=== PATIENT | male | born 1945 | race Caucasian/White ===

== ENCOUNTER → 2019-12-24 10:46 | Outpatient (CLI) | payer MEDICARE, SELFPAY ==
--- NOTE | 2019-12-24 10:55 | XR_ITS ---
PROCEDURE: XR SHOULDER RT MIN 2V CLINICAL INDICATION: BURSITIS OF R SHOULDER COMPARISON: No exams were available for comparison FINDINGS: There are mild osteoarthritic changes of the glenohumeral joint and acromioclavicular joint. There is mild superior elevation of the humeral head with subacromial stenosis and some minimal cortical regularity of the humeral head at the greater tubercle region. These findings may all be seen with rotator cuff disease. IMPRESSION: Mild subacromial stenosis with slight elevation of the humeral head and some cortical regularity of the humeral head which may be seen with rotator cuff anomalies. Mild osteoarthritis Dictated by: Domingo Arias MD 12/24/2019 18:10 Domingo Arias MD in [place] 12/24/2019 18:10
== END ==
PROVIDERS: PCP Family Medicine; Visit Provider Family Medicine
DX: M75.51 Bursitis of right shoulder (principal)
CPT/HCPCS: 73030

== ENCOUNTER → 2020-09-02 12:15 | Outpatient (CLI) | payer MEDICARE, SELFPAY ==
--- NOTE | 2020-09-02 12:19 | XR_ITS ---
PROCEDURE: XR SHOULDER LT MIN 2V CLINICAL INDICATION: TENDONITIS COMPARISON: DX XR SHOULDER RT MIN 2V from 12/24/2019 FINDINGS: No fracture or dislocation. No lytic or blastic change. There is normal mineralization. There are mild osteoarthritic changes of the acromioclavicular and glenohumeral joint with high-riding humeral head and severe subacromial stenosis. Other findings:None. IMPRESSION: Osteoarthritic change of the AC joint and glenohumeral joint with high-riding humeral head and subacromial stenosis. These findings would suggest tear of the rotator cuff. Dictated by: Domingo Arias MD 09/02/2020 12:51 Domingo Arias MD in [facility] 09/02/2020 12:51
--- NOTE | 2020-09-02 12:19 | XR_ITS ---
PROCEDURE: XR CHEST 2V CLINICAL HISTORY: H/O TOBACCO USE COMPARISON: No exams were available for comparison FINDINGS: The cardiomediastinal silhouette and pulmonary vascularity are within normal limits. The lungs are clear without infiltrates, suspicious nodules, or pleural effusions. No acute bony abnormalities. IMPRESSION: No acute findings. Dictated by: Domingo Arias MD 09/02/2020 12:52 Domingo Arias MD in [facility] 09/02/2020 12:52
== END ==
PROVIDERS: PCP Family Medicine; Visit Provider Family Medicine
DX: M75.22 Bicipital tendinitis, left shoulder (principal); Z87.891 Personal history of nicotine dependence
CPT/HCPCS: 71046; 73030

== ENCOUNTER 2022-04-09 15:58 | Emergency (ER) | payer MEDICARE, SELFPAY ==
[2022-04-09] VITALS (8 sets, daily range): BP systolic 159–168; BP diastolic 84–99; PULSE 66–88; RESP 16–18; TEMP 35.6–36.6; O2SAT 91–100; BMI 28.1
--- NOTE | 2022-04-09 16:32 | HMH.EDGENADL ---
Discharge Plan Disposition Patient Disposition: Home, Self-Care Condition: Good Chief Complaint: Weakness Referrals Follow up/Referrals: Dave Terry MD [Primary Care Provider] - See instructions Clinical Impressions Clinical Impression: Acute dehydration, Fatigue Instructions Patient Instructions: DI for Dehydration -- Adult, DI for Fatigue Discharge ED Provider: Adalberto Arellano General Adult HPI General Chief complaint: Weakness Stated complaint: Weakness Time Seen by Provider: 04/09/22 16:28 History of Present Illness HPI narrative: History somewhat limited due to hearing deficit, has 76-year-old gentleman with no documented past medical history however family bedside states he refuses to ever go to the doctor. He was found at home sitting in his kitchen table, was reportedly lethargic, stated he had not eaten or drank anything all day, also reported that he may have fallen this morning and struck his head. He is not on any anticoagulants, is denying any neck or back pain, was ambulatory just globally weak. He does report some nausea, no vomiting diarrhea or abdominal pain. He denies any fevers, chills or other symptoms at this time has not had any treatments prior to arrival here Related Data Allergies Allergy/AdvReac Type Severity Reaction Status Date / Time No Known Allergies Allergy Verified 04/09/22 16:50 [facility] Disclaimer: The information contained in this section may have been updated after the patient was seen, as this information can be updated by other users. Social History Smoking Status: Current every day smoker alcohol intake: former current occupational status: other Travel in the last 8 weeks: None ROS Obtained: Yes Systems reviewed as appropriate & no additional complaints except as documented Constitutional Constitutional: Reports system reviewed and no additional complaints, except as documented Eyes Eyes: Reports system reviewed and no additional complaints, except as documented ENT Ears, Nose, Mouth, and Throat: Reports system reviewed and no additional complaints, except as documented Cardiovascular Cardiovascular: Reports system reviewed and no additional complaints, except as documented Respiratory Respiratory: Reports system reviewed and no additional complaints, except as documented Gastrointestinal Gastrointestingal: Reports system reviewed and no additional complaints, except as documented Genitourinary Male Genitourinary: Reports system reviewed and no additional complaints, except as documented Musculoskeletal Musculoskeletal: Reports system reviewed and no additional complaints, except as documented Integumentary/Breasts Skin/Breast: Reports system reviewed and no additional complaints, except as documented Neurologic Neurologic: Reports system reviewed and no additional complaints, except as documented Endocrine Endocrine: Reports system reviewed and no additional complaints, except as documented Hematologic/Lymphatic Henatologic/Lymphatic: Reports system reviewed and no additional complaints, except as documented Allergic/Immunologic Allergic/Immunologic: Reports system reviewed and no additional complaints, except as documented Physical Exam General General appearance: alert and other (Listless) Head Head exam: atraumatic, normocephalic and normal inspection Eye Eye exam: Present normal appearance, PERRL and EOMI ENT ENT exam: Present normal exam, normal oropharynx, mucous membranes dry, TM's normal bilaterally and normal external ear exam Neck Neck exam: Present normal inspection, full ROM and trachea midline; Absent meningismus or lymphadenopathy Chest Chest inspection: Present normal inspection and symmetric chest wall rise; Absent tenderness Respiratory Respiratory exam: Present normal lung sounds bilaterally; Absent respiratory distress Cardiovascular Cardiovascular exam: Present regular rate and
--- NOTE | 2022-04-09 16:34 | XR_ITS ---
PROCEDURE INFORMATION: Exam: XR Chest Exam date and time: 04/09/2022 4:52 PM Age: 76 years old Clinical indication: Shortness of breath; Additional info: Sob/cp TECHNIQUE: Imaging protocol: Radiologic exam of the chest. Views: 1 view. COMPARISON: CR XR CHEST 2V 09/02/2020 12:26 PM FINDINGS: Lungs: Unremarkable. No consolidation. Pleural spaces: Unremarkable. No pleural effusion. No pneumothorax. Heart/Mediastinum: Unremarkable. No cardiomegaly. Bones/joints: Unremarkable for age. IMPRESSION: Negative chest
--- NOTE | 2022-04-09 16:34 | ECG_ITS ---
APPROVED REPORT Exam: Resting ECG HR:63 bpm ECG Measurements Heart Rate 63 AXES NC 185 P 71 QRSd 137 QRS -62 QT 420 T 36 QTc 427 Conclusion SINUS RHYTHM LEFT AXIS DEVIATION [QRS AXIS < -30] RIGHT BUNDLE BRANCH BLOCK [120+ ms QRS DURATION, UPRIGHT V1, 40+ ms S IN I/aVL/V4/V5/V6] ABNORMAL ECG UNCONFIRMED REPORT Electronically signed by : Sandro Ewing MD 04/10/2022 22:22:33
--- NOTE | 2022-04-09 16:43 | CT_ITS ---
PROCEDURE INFORMATION: Exam: CT Head Without Contrast Exam date and time: 04/09/2022 4:55 PM Age: 76 years old Clinical indication: Altered mental status/memory loss and walking, difficulty and weakness, extremity; Bilateral; Confusion or disorientation; Additional info: Confusion and weakness TECHNIQUE: Imaging protocol: Computed tomography of the head without contrast. Radiation optimization: All CT scans at this facility use at least one of these dose optimization techniques: automated exposure control; mA and/or kV adjustment per patient size (includes targeted exams where dose is matched to clinical indication); or iterative reconstruction. COMPARISON: No relevant prior studies available. 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 Adjacent more ill-defined area of decreased attenuation just anterior to the left to form nucleus likely representing a lacunar infarct of indeterminate age. Smaller old lacunar infarcts right basal ganglia. Vague areas of decreased attenuation within the periventricular white matter treated to chronic microvascular changes. No evidence of acute cortical infarct at this time. No evidence of intracranial hemorrhage. Cortical sulci are unremarkable for age. Cerebral ventricles: Unremarkable for age. Paranasal sinuses: Visualized sinuses are unremarkable. No fluid levels. Mastoid air cells: Visualized mastoid air cells are well aerated. Bones/joints: Unremarkable. No acute fracture. Soft tissues: Unremarkable. IMPRESSION: Multiple old lacunar infarcts both basal ganglia larger on the left 1 of which is of indeterminate age and could be better assessed on MRI exam.
[2022-04-09 16:47] LABS: Coronavirus 19, PCR Not Detected (NotDetected); Influenza A, PCR Not Detected (NotDetected); Influenza B, PCR Not Detected (NotDetected)
[2022-04-09 16:52] LABS: Chloride 102 mmol/L (98-107); Sodium 140 mmol/L (136-145)
--- NOTE | 2022-04-09 16:52 | PC.NURSE ---
pt to CT via wheelchair
[2022-04-09 16:53] LABS: Potassium 4.3 mmoL/L (3.5-5.1)
[2022-04-09 16:55] LABS: Alanine Aminotransferase 33 U/L (12-78); Albumin Level 4.6 g/dl (3.5-5.0); Albumin/Globulin Ratio 1.5 (1.1-1.8); Alkaline Phosphatase 93 U/L (38-126); Anion Gap 15.3 mEq/L (5-15); Aspartate Amino Transferase 45 U/L (17-59); Bilirubin,Total 0.7 mg/dl (0.2-1.3); Blood Urea Nitrogen 15 mg/dl (9-20); Calcium 10.5 mg/dl (8.4-10.2); Carbon Dioxide 27 mmol/L (22.0-30.0); Creatinine Clearance Estimated 70 mL/min (50-200); Estimated Glomerular Filt Rate 93 ml/min (>60); GFR (African American) 113 ML/MIN (>60); Glucose 168 mg/dl (74-100); Total Protein,Serum 7.6 g/dl (6.3-8.2)
[2022-04-09 16:56] LABS: Magnesium 1.9 mg/dl (1.6-2.3)
[2022-04-09 17:03] LABS: Basophils # 0.1 K/mm3 (0-0.2); Basophils % 0.7 % (0.1-2.0); Eosinophils % 0.2 % (0.1-12.0); Hematocrit 50.4 % (42.0-52.0); Hemoglobin 16.6 g/dL (14.1-18.0); Lymphocytes # 0.6 K/mm3 (0.7-4.5); Lymphocytes % 7.9 % (10-50); Mean Corpuscular HGB Conc 32.9 g/dL (31.8-35.4); Mean Corpuscular Hemoglobin 31.3 pg (27.0-31.2); Mean Corpuscular Volume 95.2 fl (80-94); Mean Platelet Volume 8.1 fl (7.4-10.4); Monocytes # 0.4 K/mm3 (0.1-1.0); Monocytes % 5.1 % (1.7-9.3); Neutrophils # 6.7 K/mm3 (1.8-7.8); Platelet Count 224 K/mm3 (142-424); Red Cell Distribution Width 13.4 % (11.5-17.5); White Blood Count 7.8 K/mm3 (4.8-10.8)
[2022-04-09 17:15] LABS: MANUAL DIFFERENTIAL MANUAL DIFFERENTIAL (MANUAL DIFF)
[2022-04-09 17:20] LABS: Troponin I < 0.01 ng/ml (0.00-0.034)
[2022-04-09 18:02] LABS: Lymphocytes % 4 % (10-50); Neutrophils % 90 % (42-76); Platelet Estimate Normal; RBC Morphology Normal; Total Cells Counted 100
== END 2022-04-09 19:43 | disposition home or self-care (01) ==
PROVIDERS: Emergency Provider Emergency Medicine; PCP Family Medicine
DX: R53.1 Weakness (principal); R53.81 Other malaise; R11.0 Nausea; Z20.822 Contact with and (suspected) exposure to COVID-19; I45.10 Unspecified right bundle-branch block; F17.210 Nicotine dependence, cigarettes, uncomplicated
CPT/HCPCS: 70450; 71045; 80053; 83735; 84484; 85007; 85025; 93005; 96360; 99285; C9803; U0003; U0005

== ENCOUNTER 2023-03-10 12:22 | Observation (INO) | payer MEDICARE, SELFPAY ==
[2023-03-10] VITALS (10 sets, daily range): BP systolic 98–129; BP diastolic 60–78; PULSE 68–89; RESP 16–18; TEMP 36.4–36.7; O2SAT 90–98; BMI 19.6; BMI 20.5
--- NOTE | 2023-03-10 12:33 | PC.NURSE ---
Dr. Hopkins at [facility] for pt eval
--- NOTE | 2023-03-10 12:39 | XR_ITS ---
FINAL REPORT CLINICAL HISTORY: fall, right hip pain, inability to walk COMPARISON: None FINDINGS: RIGHT HIP Two views of the right hip demonstrate no acute fracture or dislocation. The hip joint space is preserved. The visualized bony structures are well aligned. No soft tissue abnormality is seen. IMPRESSION: No acute bony abnormality. Reviewed, Interpreted and Dictated by Pedro Pablo Chavez MD Transcribed by Gail Yi Authenticated and . [facility]
--- NOTE | 2023-03-10 12:39 | CT_ITS ---
FINAL REPORT TECHNIQUE: Axial images were obtained of the lumbar spine by computed tomography. Coronal and sagittal reconstruction process performed. This study was performed with techniques to keep radiation doses as low as reasonably achievable (ALARA). Individualized dose reduction techniques using automated exposure control or adjustment of mA and/or kV according to the patient''s size were employed. CLINICAL HISTORY: falll, ttp COMPARISON: None FINDINGS: There is 15 degrees of lumbar scoliosis convex to the right. There is extensive disc space narrowing L1-2 through L4-5 with vacuum disc phenomenon. Vertebrae are normal in height. There is no malalignment. There is prominent facet sclerosis in the lower lumbar spine. T12-L1: No significant spinal canal or neural foraminal compromise. L1-2: Grxb-bh-mutyrhfx diffuse disc bulge. Iwll-kd-cpmhjewd bilateral neural foraminal narrowing. L2-3: Moderate diffuse disc bulge. Endplate hypertrophy. Moderate left neural foraminal narrowing. L3-4: Moderate diffuse disc bulge. Endplate hypertrophy. Moderate right and high-grade left neural foraminal narrowing. L4-5: Moderate diffuse disc bulge. Endplate hypertrophy. High-grade right and moderate left neural foraminal narrowing. L5-S1: Mild diffuse disc bulge. Nioe-ns-ykllrqbf bilateral neural foraminal narrowing. There is ectasia of the distal abdominal aorta measuring up to 2.7 cm. IMPRESSION: Diffuse changes of degenerative disc disease with neural foraminal compromise particularly evident on the left at L3-4 and on the right at L4-5. Reviewed, Interpreted and Dictated by Pedro Pablo Chavez MD Transcribed by Gail Yi Authenticated and [facility]
--- NOTE | 2023-03-10 12:39 | CT_ITS ---
FINAL REPORT TECHNIQUE: Axial CT images were performed through the head. Coronal reformatted images were submitted. This study was performed with techniques to keep radiation doses as low as reasonably achievable (ALARA). Individualized dose reduction techniques using automated exposure control or adjustment of mA and/or kV according to the patient's size were employed. CLINICAL HISTORY: fall, no thinners COMPARISON: None FINDINGS: There is moderate atrophy. Head is asymmetrically positioned in the gantry. There are multiple old lacunar infarcts in the anterior basal ganglia and left periventricular white matter. The ventricles are normal in size. There is no evidence of hemorrhage. There is no mass or edema identified. There is no abnormal extra-axial fluid seen. The sinuses are well aerated. IMPRESSION: Old lacunar infarcts. Atrophy. If suspicion for acute abnormality, diffusion-weighted brain MRI is recommended. Reviewed, Interpreted and Dictated by Pedro Pablo Chavez MD Transcribed by Gail Yi Authenticated and [facility]
--- NOTE | 2023-03-10 12:39 | XR_ITS ---
FINAL REPORT CLINICAL HISTORY: fall, pain in right hip COMPARISON: None FINDINGS: Two views of the right femur were obtained. There is no acute fracture or dislocation. The joint spaces are well preserved. There is no acute soft tissue abnormality. IMPRESSION: No acute abnormality identified. Reviewed, Interpreted and Dictated by Pedro Pablo Chavez MD Transcribed by Gail Yi Authenticated and [facility]
--- NOTE | 2023-03-10 12:40 | HMH.EDGENADL ---
Discharge Plan Disposition Patient Disposition: Admitted Condition: Fair Clinical Impressions Clinical Impression: MELVIN (acute kidney injury), Debility Fall Qualifiers: Encounter type: initial encounter Qualified Code(s): W19.XXXA - Unspecified fall, initial encounter Discharge ED Provider: Niurka Hopkins General Adult HPI General Chief complaint: Fall Stated complaint: RT leg and hip pain Time Seen by Provider: 03/10/23 12:32 History of Present Illness HPI narrative: This 77-year-old male with a history of hypertension presents to the emergency department after a fall 2 days ago. His family made him come to the ER because he has been unable to walk since that time. Patient states he has pain in the right hip. They describe he has had difficulty getting up out of a chair since the fall. Patient also complains of lower back pain since the fall. He apparently stated 2 days ago he thought he might of hit his head, patient is unsure. He does not have a history of dementia, normally drives into town daily. He ambulates without assistance at baseline. Family at bedside states he is mentating at baseline at this time. Patient does not have any other complaints at this time. Related Data Home Medications Medication Instructions Recorded Confirmed No Known Home Medications 03/10/23 03/10/23 Allergies Allergy/AdvReac Type Severity Reaction Status Date / Time No Known Allergies Allergy Verified 04/09/22 16:50 [facility] Disclaimer: The information contained in this section may have been updated after the patient was seen, as this information can be updated by other users. Social History (Updated 04/09/22 @ 18:42 by Adalberto Arellano MD) Smoking Status: Current every day smoker alcohol intake: former current occupational status: other Travel in the last 8 weeks: None ROS Obtained: Yes All systems reviewed & no additional complaints except as documented Constitutional Constitutional: Denies chills, Denies fever(s), Denies headache(s) and Denies weakness Eyes Eyes: Denies change in vision ENT Ears, Nose, Mouth, and Throat: Denies dizziness, Denies headache(s), Denies nasal congestion and Denies sore throat Cardiovascular Cardiovascular: Denies chest pain, Denies dyspnea and Denies leg edema Respiratory Respiratory: Denies cough and Denies dyspnea Gastrointestinal Gastrointestingal: Denies constipation, diarrhea, nausea or vomiting Genitourinary Male Genitourinary: Denies difficulty urinating Musculoskeletal Musculoskeletal: Reports abnormal gait (Unable to ambulate), Reports arthralgias (Right hip pain), Denies myalgias, Denies numbness and Denies tingling Integumentary/Breasts Skin/Breast: Denies change in pigmentation Neurologic Neurologic: Reports abnormal gait (Unable to ambulate), Denies dizziness, Denies headache(s), Denies numbness, Denies tingling and Denies weakness Physical Exam General General appearance: alert and in no apparent distress Head Head exam: atraumatic and normocephalic Eye Eye exam: Present PERRL and EOMI ENT ENT exam: Present mucous membranes moist Neck Neck exam: Present normal inspection and full ROM; Absent tenderness Chest Chest inspection: Present symmetric chest wall rise Respiratory Respiratory exam: Present normal lung sounds bilaterally; Absent respiratory distress, wheezes or stridor Cardiovascular Cardiovascular exam: Present regular rate and normal rhythm Abdominal Exam Abdominal exam: Present soft; Absent distention, tenderness, guarding or rebound Extremities Exam Extremities exam: Present full ROM (Range of motion of hips, knees, ankles full with passive movement. Minor pain on flexion of the right hip. No deformity or crepitus. Neurovascularly intact distally) and tenderness Back Exam Back exam: Present tenderness (Lumbar spinal tenderness without deformity or step-off) Neurological Exam Neurological exam: Present alert and oriented X3; Absent motor sens
[2023-03-10 13:16] LABS: Basophils % 0.3 % (0.1-2.0); Eosinophils # 0.1 K/mm3 (0.0-0.4); Eosinophils % 0.5 % (0.1-12.0); Hemoglobin 16.6 g/dL (14.1-18.0); Lymphocytes # 1.5 K/mm3 (0.7-4.5); Lymphocytes % 9.6 % (10-50); Mean Corpuscular HGB Conc 33.2 g/dL (31.8-35.4); Mean Corpuscular Hemoglobin 32.3 pg (27.0-31.2); Mean Corpuscular Volume 97.4 fl (80-94); Mean Platelet Volume 8.5 fl (7.4-10.4); Monocytes # 1.2 K/mm3 (0.1-1.0); Monocytes % 7.8 % (1.7-9.3); Neutrophils # 12.7 K/mm3 (1.8-7.8); Neutrophils % 81.8 % (37.0-80.0); Platelet Count 198 K/mm3 (142-424); Red Blood Count 5.13 M/mm3 (4.60-6.20); Red Cell Distribution Width 13.2 % (11.5-17.5); White Blood Count 15.6 K/mm3 (4.8-10.8)
[2023-03-10 13:17] LABS: MANUAL DIFFERENTIAL MANUAL DIFFERENTIAL (MANUAL DIFF)
[2023-03-10 13:22] LABS: Alanine Aminotransferase 62 U/L (12-78); Alkaline Phosphatase 77 U/L (38-126); Aspartate Amino Transferase 188 U/L (17-59); Blood Urea Nitrogen 37 mg/dl (9-20); Carbon Dioxide 27 mmol/L (22.0-30.0); Chloride 102 mmol/L (98-107); Creatinine Clearance Estimated 43 mL/min (50-200); Estimated Glomerular Filt Rate 53 ml/min (>60); GFR (African American) 64 ML/MIN (>60)
[2023-03-10 13:23] LABS: Albumin Level 4.2 g/dl (3.5-5.0); Albumin/Globulin Ratio 1.4 (1.1-1.8); Anion Gap 13.3 mEq/L (5-15); Calcium 10.6 mg/dl (8.4-10.2); Globulin 3.1 g/dL (1.3-3.2); Glucose 107 mg/dl (74-100); Potassium 4.3 mmoL/L (3.5-5.1); Sodium 138 mmol/L (136-145); Total Protein,Serum 7.3 g/dl (6.3-8.2)
--- NOTE | 2023-03-10 13:27 | PC.NURSE ---
pt gone to radiology
[2023-03-10 13:39] LABS: Lymphocytes % 12 % (10-50); Monocytes % 10 % (2-9); Neutrophils % 78 % (42-76); Total Cells Counted 100
[2023-03-10 13:40] LABS: Platelet Estimate Normal; RBC Morphology Normal
[2023-03-10 14:01] LABS: Microscopic, Urine URINE MICROSCOPIC (MICROSCOPIC)
[2023-03-10 14:10] LABS: Appearance,Urine CLEAR (Clear); Blood, Urine 2+ (Negative); Color,Urine YELLOW (Yellow); Glucose,Urine (UA) Negative (Negative); Ketones,Urine Negative (Negative); Leukocyte Esterase,Urine Negative (Negative); Nitrate,Urine POSITIVE (Negative); Protein,Urine TRACE (Negative); Specific Gravity, Urine >= 1.030 (1.005-1.030)
[2023-03-10 14:19] LABS: Bilirubin,Urine Negative (Negative)
[2023-03-10 14:51] LABS: Squamous Epithelial Cell,Urine Occasional #/hpf (0-5)
[2023-03-10 14:52] LABS: Bacteria,Urine 4+ /lpf
--- NOTE | 2023-03-10 15:07 | PC.NURSE ---
Dr. Hopkins at BS to update pt/family on POC
--- NOTE | 2023-03-10 15:09 | PC.NURSE ---
Dr. Hopkins s/w Dr. Terry for possible admission
--- NOTE | 2023-03-10 15:13 | PC.NURSE ---
Dr. Terry agrees to admit pt: MELVIN, debility, frequent falls, and UTI. s/w Shanna in Care Management for admission
--- NOTE | 2023-03-10 15:39 | PC.NURSE ---
Called report to Alvino OSWALD on Med/Surg
--- NOTE | 2023-03-10 16:09 | PC.NURSE ---
arrived by stretcher from ED
--- NOTE | 2023-03-10 18:52 | EXP.HP ---
History of Present Illness *History of present illness: Medical Decision Narrative: This 77year old male presented to the emergency department after fall a few days ago. He complains of right hip pain, low back pain. On ER evaluation: patient is hemodynamically stable, afebrile, GCS 15, resting comfortably. Physical exam notable for full range of motion passively in the lower extremities but minor pain in the right hip with range of motion. No deformity. Neurovascularly intact. Tenderness of the lumbar spine without other spinal tenderness, no deformity, no step-off, no focal neurologic deficits. No findings of trauma to the head. There was concern for urinary tract infection. Imaging included x-rays of the pelvis, hip, right femur, CT imaging of the head and lumbar spine. Patient received IV fluids for treatment. CBC revealed leukocytosis, WBC 15.6, no anemia, CMP showed new kidney changes including BUN 37, creatinine 1.3 AST newly elevated at 188. The UA showed 3-5 WBCs, 4+ bacteria, positive nitrates. Radiologic studies demonstrate no fracture or dislocation in the pelvis, right hip, or right femur. The patient has marked hearing deficit and therefor obtaining a history proves difficult. I last saw this patient in the office of [facility] in September of 2020. He takes no medications. [facility] Disclaimer: The information contained in this section may have been updated after the patient was seen, as this information can be updated by other users. Medical History (Updated 03/10/23 @ 19:15 by Dave Terry MD) Abrasion of hip Bandemia Hearing deficit History of skin cancer No significant past medical history UTI (urinary tract infection) Weakness Family History (Updated 03/10/23 @ 17:05 by Jenny Gonzalez RN) No significant family history Social History (Updated 03/10/23 @ 17:08 by Jenny Gonzalez RN) Smoking Status: Current every day smoker alcohol intake: former current occupational status: other Travel in the last 8 weeks: None Review of Systems Review of Systems Review of systems:: unable to obtain (due to marked hearing deficit.) Constitutional Constitutional: Reports as per HPI, Denies headache(s) and Denies weakness Eyes Eyes: Reports system reviewed and no additional complaints, except as documented ENT Ears, Nose, Mouth, and Throat: Reports abnormal hearing, Denies dizziness and Denies headache(s) *Cardiovascular Cardiovascular: Denies chest pain, Denies chest pain with activity and Denies dyspnea *Respiratory Respiratory: Denies dyspnea *Gastrointestinal Gastrointestinal: Reports as per HPI *Genitourinary Genitourinary: Reports as per HPI *Musculoskeletal Musculoskeletal: Reports abnormal gait (Unable to ambulate, fall history.), Denies numbness and Denies tingling *Neurologic Neurologic: Reports abnormal gait (Unable to ambulate, fall history.), Reports abnormal hearing, Denies dizziness, Denies headache(s), Denies numbness, Denies tingling and Denies weakness Meds Home Medications and Allergies Home Medications Medication Instructions Recorded Confirmed Type No Known Home Medications 03/10/23 03/10/23 History New Prescriptions to Start Prescriptions: Allergies Allergy/AdvReac Type Severity Reaction Status Date / Time No Known Allergies Allergy Verified 03/10/23 16:57 Exam Data for Last 24 hours Vital signs and Labs for Last 24 Hours: Temp Pulse Resp BP Pulse Ox O2 Del Method 97.6 F 72 18 105/68 L 98 Room Air 03/10/23 18:00 03/10/23 18:00 03/10/23 18:00 03/10/23 18:00 03/10/23 18:44 03/10/23 18:44 Laboratory Results - last 24 hr 03/10/23 12:55: WBC 15.6 H, RBC 5.13, Hgb 16.6, Hct 50.0, MCV 97.4 H, MCH 32.3 H, MCHC 33.2, RDW 13.2, Plt Count 198, MPV 8.5, Neut % (Auto) 81.8 H, Lymph % (Auto) 9.6 L, [place] % (Auto) 7.8, Eos % (Auto) 0.5, Baso % (Auto) 0.3, Neut # (Auto) 12.7 H, Lymph # (Auto) 1.5, [place] # (Auto) 1.2 H, Eos # (Auto) 0.1, Baso # (Auto) 0
[2023-03-10 20:12] LABS: Thyroid Stimulating Hormone 2.59 uIU/mL (0.465-4.68)
[2023-03-10 20:31] LABS: Vitamin B12 261 pg/mL (239-931)
[2023-03-11 04:00] VITALS: BP 116/67; PULSE 80; RESP 18; TEMP 36.5; O2SAT 100; BMI 19.9
[2023-03-11 07:23] LABS: Chloride 104 mmol/L (98-107); Sodium 137 mmol/L (136-145)
[2023-03-11 07:24] LABS: Potassium 3.7 mmoL/L (3.5-5.1)
[2023-03-11 07:26] LABS: Alanine Aminotransferase 55 U/L (12-78); Alkaline Phosphatase 73 U/L (38-126); Aspartate Amino Transferase 131 U/L (17-59); Bilirubin,Total 0.5 mg/dl (0.2-1.3); Blood Urea Nitrogen 36 mg/dl (9-20); Creatinine Clearance Estimated 43 mL/min (50-200); Estimated Glomerular Filt Rate 65 ml/min (>60); GFR (African American) 78 ML/MIN (>60)
[2023-03-11 07:27] LABS: Albumin Level 3.6 g/dl (3.5-5.0); Albumin/Globulin Ratio 1.3 (1.1-1.8); Anion Gap 6.7 mEq/L (5-15); Calcium 9.8 mg/dl (8.4-10.2); Carbon Dioxide 30 mmol/L (22.0-30.0); Globulin 2.8 g/dL (1.3-3.2); Glucose 98 mg/dl (74-100); Total Protein,Serum 6.4 g/dl (6.3-8.2)
[2023-03-11 07:45] LABS: Basophils % 0.2 % (0.1-2.0); Eosinophils % 0.3 % (0.1-12.0); Hematocrit 42.7 % (42.0-52.0); Lymphocytes # 1.7 K/mm3 (0.7-4.5); Lymphocytes % 14.3 % (10-50); Mean Corpuscular HGB Conc 33.2 g/dL (31.8-35.4); Mean Corpuscular Hemoglobin 32.2 pg (27.0-31.2); Mean Corpuscular Volume 96.8 fl (80-94); Mean Platelet Volume 8.6 fl (7.4-10.4); Monocytes # 1.1 K/mm3 (0.1-1.0); Monocytes % 8.8 % (1.7-9.3); Neutrophils # 9.3 K/mm3 (1.8-7.8); Neutrophils % 76.5 % (37.0-80.0); Platelet Count 176 K/mm3 (142-424); Red Blood Count 4.42 M/mm3 (4.60-6.20); White Blood Count 12.2 K/mm3 (4.8-10.8)
[2023-03-11 07:46] LABS: Hemoglobin 14.2 g/dL (14.1-18.0)
[2023-03-11 08:00] VITALS: BP 127/83; PULSE 74; RESP 20; TEMP 36.4; O2SAT 98
--- NOTE | 2023-03-11 11:21 | EXP.ACUTE.PN ---
Subjective *Date: 03/11/23 *Time: 11:21 Interval history: He looks quite good this morning. Apparently he rested well. He is eating. His vital signs are good. His blood work is improved. The white count is decreasing. TSH is within normal limits. Vitamin B12 is low.An injection of cyanocobalamin is ordered. He needs assessment by physical therapy. He needs assessment by case management for ultimate disposition. He lives at home by himself. His cousin checks on him occasionally.He is a fall risk. Medical Exam Vital signs and Labs for Last 24 Hours: Vital Signs Temp Pulse Pulse Resp BP BP Pulse Ox 03/11/23 10:38 03/11/23 08:43 03/11/23 08:00 03/11/23 08:00 97.5 F L 74 20 127/83 98 03/11/23 04:00 97.7 F 80 18 116/67 100 03/11/23 01:00 03/10/23 20:00 98.1 F 68 18 114/63 95 03/11/23 06:39 03/11/23 05:00 03/11/23 03:00 03/10/23 23:00 03/10/23 21:00 03/10/23 20:00 03/10/23 18:44 98 03/10/23 18:00 97.6 F 72 18 105/68 L 95 03/10/23 17:41 03/10/23 16:03 97.8 F 69 17 102/63 L 03/10/23 15:55 03/10/23 15:00 114/75 98 03/10/23 14:43 82 129/78 90 L 03/10/23 14:00 85 98/60 L 92 L 03/10/23 13:40 89 120/72 94 L 03/10/23 13:00 85 111/77 94 L 03/10/23 12:23 97.9 F 80 16 124/72 98 O2 Del Method 03/11/23 10:38 Room Air 03/11/23 08:43 Room Air 03/11/23 08:00 Room Air 03/11/23 08:00 Room Air 03/11/23 04:00 Room Air 03/11/23 01:00 Room Air 03/10/23 20:00 Room Air 03/11/23 06:39 Room Air 03/11/23 05:00 Room Air 03/11/23 03:00 Room Air 03/10/23 23:00 Room Air 03/10/23 21:00 Room Air 03/10/23 20:00 Room Air 03/10/23 18:44 Room Air 03/10/23 18:00 Room Air 03/10/23 17:41 Room Air 03/10/23 16:03 Room Air 03/10/23 15:55 Room Air 03/10/23 15:00 03/10/23 14:43 03/10/23 14:00 03/10/23 13:40 03/10/23 13:00 03/10/23 12:23 Room Air Intake and Output 03/10/23 03/11/23 03/11/23 19:59 03:59 11:59 Intake Total 1470 / 2150 200 / 2150 480 / 2150 Output Total 0 / 0 0 / 0 Balance 1470 / 2150 200 / 2150 480 / 2150 Intake: Intake, Oral Amount 420 / 1100 200 / 1100 480 / 1100 Intake, Total IV Amount 1050 / 1050 Output: Output, Urine Amount 0 / 0 0 / 0 Other: Number of Voids 0 Number of Unmeasured Voids 1 1 Number of Urine Attends/Diapers 1 Weight 127 lb 8 oz 124 lb 1.6 oz Patient Weight 03/11/23 11:59 Weight 124 lb 1.6 oz Laboratory Results - last 24 hr 03/10/23 12:55: WBC 15.6 H, RBC 5.13, Hgb 16.6, Hct 50.0, MCV 97.4 H, MCH 32.3 H, MCHC 33.2, RDW 13.2, Plt Count 198, MPV 8.5, Neut % (Auto) 81.8 H, Lymph % (Auto) 9.6 L, [place] % (Auto) 7.8, Eos % (Auto) 0.5, Baso % (Auto) 0.3, Neut # (Auto) 12.7 H, Lymph # (Auto) 1.5, [place] # (Auto) 1.2 H, Eos # (Auto) 0.1, Baso # (Auto) 0.0, Total Counted 100, Neutrophils % (Manual) 78 H, Lymphocytes % (Manual) 12, Monocytes % (Manual) 10 H, Platelet Estimate Normal, RBC Morphology Normal, Sodium 138, Potassium 4.3, Chloride 102, Carbon Dioxide 27, Anion Gap 13.3, BUN 37 H, Creatinine 1.30 H, Estimated Creat Clear 43, Estimated GFR 53 L, Est GFR ( Amer) 64, Glucose 107 H, Calcium 10.6 H, Total Bilirubin 1.0, AST 188 H, ALT 62, Alkaline Phosphatase 77, Total Protein 7.3, Albumin 4.2, Globulin 3.1, Albumin/Globulin Ratio 1.4, Vitamin B12 261, TSH 2.59 03/10/23 13:45: Urine Color Yellow, Urine Appearance Clear, Urine pH 6.0, Ur Specific [place] >= 1.030, Urine Protein Trace, Urine Glucose (UA) Negative, Urine Ketones Negative, Urine Blood 2+, Urine Nitrate Positive, Urine Bilirubin Negative, Urine Urobilinogen 1.0, Ur Leukocyte Esterase Negative, Urine RBC None, Urine WBC 3-5, Ur Squamous Epith Cells Occasional, Urine Bacteria 4+ 03/11/23 06:51: WBC 12.2 H, RBC 4.42 L, Hgb 14.2 D, Hct 42.7, MCV 96.8 H, MCH 32.2 H, MCHC 33.2, RDW 13.0, Plt Count 176, MPV 8.6,
--- NOTE | 2023-03-11 14:58 | HMH.PTEV ---
Physical Therapy Evaluation Rehab PT IP Evaluation Start: 03/11/23 11:13 Freq: ONCE Status: Active Protocol: Document 03/11/23 14:32 PDESEROUX (Rec: 03/11/23 14:58 [email or web address] [id number]) Subjective/History History History Pt. is a 77 year old male who presents to the 2nd floor [facility] Inpatient setting for the initial Inpatient Physical Therapy evaluation this date( 03/11/23) secondary to having a fall Monday(03/08/23) per pt.'s family report. Pt.'s had 3 family members(two adult , one child) at bedside during evaluation. Pt. presents as a poor historian where pt.'s family answered subjective questions asked by Physical Therapist secondary to auditory impairment. Pt. lives alone in a camper w/ two steps to enter. Pt.'s family members report they live next to pt. and share the same driveway and check on the patient daily. Pt. reports owning a SPC, but states I do not use it. Pt.'s family reports recently acquiring another family member's FWW for pt. to use in his camper. Pt.'s family member reports pt . is able to IND. feed and bathe self. Pt. reports he had fallen a few days ago where he layed on his right side w/ keys in his pocket that were digging into his hip for 24 hours secondary to not being able to IND. stand up on his own. Pt.'s family member reports pt. has recurring falls, but he is able to stand back up IND. However, pt.'s family member reported pt. wasn't able to stand up IND. and had been c/o increasing hip P! from most recent fall on Monday(03/08/23), therefore, pt. was b
--- NOTE | 2023-03-11 14:59 | HMH.PTEV ---
Physical Therapy Evaluation Rehab PT IP Evaluation Start: 03/11/23 11:13 Freq: ONCE Status: Active Protocol: Document 03/11/23 14:32 PDESEROUX (Rec: 03/11/23 14:58 [email or web address] [id number]) Subjective/History History History Pt. is a 77 year old male who presents to the 2nd floor [facility] Inpatient setting for the initial Inpatient Physical Therapy evaluation this date( 03/11/23) secondary to having a fall Monday(03/08/23) per pt.'s family report. Pt.'s had 3 family members(two adult , one child) at bedside during evaluation. Pt. presents as a poor historian where pt.'s family answered subjective questions asked by Physical Therapist secondary to auditory impairment. Pt. lives alone in a camper w/ two steps to enter. Pt.'s family members report they live next to pt. and share the same driveway and check on the patient daily. Pt. reports owning a SPC, but states I do not use it. Pt.'s family reports recently acquiring another family member's FWW for pt. to use in his camper. Pt.'s family member reports pt . is able to IND. feed and bathe self. Pt. reports he had fallen a few days ago where he layed on his right side w/ keys in his pocket that were digging into his hip for 24 hours secondary to not being able to IND. stand up on his own. Pt.'s family member reports pt. has recurring falls, but he is able to stand back up IND. However, pt.'s family member reported pt. wasn't able to stand up IND. and had been c/o increasing hip P! from most recent fall on Monday(03/08/23), therefore, pt. was b
[2023-03-11 15:06] VITALS: BMI 19.9
--- NOTE | 2023-03-11 15:40 | HMH.PTEV ---
Physical Therapy Evaluation Rehab PT IP Evaluation Start: 03/11/23 11:13 Freq: ONCE Status: Active Protocol: Document 03/11/23 14:32 PDESEROUX (Rec: 03/11/23 14:58 [email or web address] [id number]) Subjective/History History History Pt. is a 77 year old male who presents to the 2nd floor [facility] Inpatient setting for the initial Inpatient Physical Therapy evaluation this date( 03/11/23) secondary to having a fall Monday(03/08/23) per pt.'s family report. Pt.'s had 3 family members(two adult , one child) at bedside during evaluation. Pt. presents as a poor historian where pt.'s family answered subjective questions asked by Physical Therapist secondary to auditory impairment. Pt. lives alone in a camper w/ two steps to enter. Pt.'s family members report they live next to pt. and share the same driveway and check on the patient daily. Pt. reports owning a SPC, but states I do not use it. Pt.'s family reports recently acquiring another family member's FWW for pt. to use in his camper. Pt.'s family member reports pt . is able to IND. feed and bathe self. Pt. reports he had fallen a few days ago where he layed on his right side w/ keys in his pocket that were digging into his hip for 24 hours secondary to not being able to IND. stand up on his own. Pt.'s family member reports pt. has recurring falls, but he is able to stand back up IND. However, pt.'s family member reported pt. wasn't able to stand up IND. and had been c/o increasing hip P! from most recent fall on Monday(03/08/23), therefore, pt. was b
[2023-03-11 16:00] VITALS: BP 149/104; PULSE 65; RESP 18; TEMP 37; O2SAT 94
--- NOTE | 2023-03-11 18:48 | PC.NURSE ---
PT HAS BEEN A&OX4 THIS SHIFT. SOMETIMES IS SLOW TO RESPOND AND VERY [place]. PT SEEN BY P.T TODAY. PT WALKING TO BATHROOM WITH WALKER AND X1 ASSIST. TOLERATING WELL. ABRASION TO R HIP DRESSED THIS SHIFT, CDI. FAMILY HAS VISITED TODAY. NO NEEDS OR C/O NOTED THIS SHIFT. PT HAS HAD A GOOD APPETITE. VSS.
[2023-03-11 20:00] VITALS: BP 122/73; PULSE 78; RESP 16; TEMP 36.6; O2SAT 98
[2023-03-12 04:00] VITALS: BP 120/62; PULSE 75; RESP 16; TEMP 36.6; O2SAT 92; BMI 20.4
[2023-03-12 07:17] LABS: Chloride 103 mmol/L (98-107); Potassium 3.6 mmoL/L (3.5-5.1); Sodium 133 mmol/L (136-145)
[2023-03-12 07:19] LABS: Alanine Aminotransferase 45 U/L (12-78); Aspartate Amino Transferase 83 U/L (17-59); Blood Urea Nitrogen 27 mg/dl (9-20); Creatinine Clearance Estimated 49 mL/min (50-200); Estimated Glomerular Filt Rate 93 ml/min (>60); GFR (African American) 113 ML/MIN (>60)
[2023-03-12 07:20] LABS: Albumin Level 3.2 g/dl (3.5-5.0); Albumin/Globulin Ratio 1.2 (1.1-1.8); Alkaline Phosphatase 61 U/L (38-126); Anion Gap 7.6 mEq/L (5-15); Bilirubin,Total 0.7 mg/dl (0.2-1.3); Calcium 9.2 mg/dl (8.4-10.2); Carbon Dioxide 26 mmol/L (22.0-30.0); Globulin 2.7 g/dL (1.3-3.2); Glucose 95 mg/dl (74-100); Total Protein,Serum 5.9 g/dl (6.3-8.2)
[2023-03-12 07:38] LABS: Basophils % 0.2 % (0.1-2.0); Eosinophils # 0.1 K/mm3 (0.0-0.4); Eosinophils % 1.5 % (0.1-12.0); Hematocrit 39.2 % (42.0-52.0); Lymphocytes # 1.6 K/mm3 (0.7-4.5); Lymphocytes % 20.5 % (10-50); Mean Corpuscular HGB Conc 33.1 g/dL (31.8-35.4); Mean Corpuscular Hemoglobin 31.9 pg (27.0-31.2); Mean Corpuscular Volume 96.6 fl (80-94); Mean Platelet Volume 8.8 fl (7.4-10.4); Monocytes # 0.6 K/mm3 (0.1-1.0); Monocytes % 7.3 % (1.7-9.3); Neutrophils # 5.6 K/mm3 (1.8-7.8); Neutrophils % 70.4 % (37.0-80.0); Platelet Count 156 K/mm3 (142-424); Red Blood Count 4.06 M/mm3 (4.60-6.20); White Blood Count 7.9 K/mm3 (4.8-10.8)
[2023-03-12 08:00] VITALS: BP 144/71; PULSE 95; RESP 16; TEMP 36.4; O2SAT 97
--- NOTE | 2023-03-12 13:12 | EXP.ACUTE.PN ---
Subjective *Date: 03/12/23 *Time: 13:12 Interval history: Family members were here today (cousin and her ). I was able to discuss the patient's situation with them. I told them of the B12 deficiency. I recommended 12,000 mcg of vitamin B12 orally, daily. He needs hearing aids. His cousin told me that he has been evaluated for cataract surgery. His white blood cell count has normalized. His electrolytes are good. Medical Exam Vital signs and Labs for Last 24 Hours: Vital Signs Temp Pulse Resp BP Pulse Ox O2 Del Method 03/12/23 12:52 Room Air 03/12/23 11:00 Room Air 03/12/23 08:37 Room Air 03/12/23 08:00 Room Air 03/12/23 08:00 97.6 F 95 H 16 144/71 H 97 Room Air 03/12/23 05:00 Room Air 03/12/23 04:00 97.8 F 75 16 120/62 92 L Room Air 03/12/23 03:00 Room Air 03/12/23 01:00 Room Air 03/11/23 23:00 Room Air 03/11/23 21:00 Room Air 03/11/23 20:00 97.9 F 78 16 122/73 98 Room Air 03/11/23 21:00 Room Air 03/11/23 18:47 Room Air 03/11/23 16:36 Room Air 03/11/23 16:00 98.6 F 65 18 149/104 H 94 L Room Air 03/11/23 14:39 Room Air Intake and Output 03/12/23 03/12/23 03/12/23 03:59 11:59 19:59 Intake Total 780 / 1790 Output Total 0 / 0 0 / 0 Balance 0 / 1790 780 / 1790 Intake: Intake, Oral Amount 780 / 1740 Output: Output, Urine Amount 0 / 0 0 / 0 Other: Number of Unmeasured Voids 1 1 Number of Bowel Movements 1 Weight 127 lb Laboratory Results - last 24 hr 03/12/23 06:24: WBC 7.9 D, RBC 4.06 L, Hgb 13.0 L, Hct 39.2 L, MCV 96.6 H, MCH 31.9 H, MCHC 33.1, RDW 13.0, Plt Count 156, MPV 8.8, Neut % (Auto) 70.4, Lymph % (Auto) 20.5, [place] % (Auto) 7.3, Eos % (Auto) 1.5, Baso % (Auto) 0.2, Neut # (Auto) 5.6, Lymph # (Auto) 1.6, [place] # (Auto) 0.6, Eos # (Auto) 0.1, Baso # (Auto) 0.0, Sodium 133 L, Potassium 3.6, Chloride 103, Carbon Dioxide 26, Anion Gap 7.6, BUN 27 H, Creatinine 0.80 D, Estimated Creat Clear 49, Estimated GFR 93, Est GFR ( Amer) 113 D, Glucose 95, Calcium 9.2, Total Bilirubin 0.7, AST 83 H D, ALT 45, Alkaline Phosphatase 61, Total Protein 5.9 L, Albumin 3.2 L D, Globulin 2.7, Albumin/Globulin Ratio 1.2 I & O for Labs for Last 24 Hours: Intake & Output 03/10/23 03/11/23 03/12/23 03/13/23 11:59 11:59 11:59 11:59 Intake Total 0 / 2150 1790 / 1790 Output Total 0 / 0 0 / 0 Balance 2149 / 2149 1790 / 1790 Weight 124 lb 1.6 oz 127 lb Head: Present normocephalic Eyes: Present as per HPI ENT: Present normal exam Neck: Present normal inspection Respiratory: Present decreased breath sounds; Absent respiratory distress Cardiac: Present Reg Rate and Rhythm GI: Present soft; Absent tenderness or mass Rectal (male): Present deferred (male): Present normal inspection Extremities: Present normal inspection; Absent edema Skin: Present intact Neuro: Present alert, oriented x 3 and moves all extremities Assessment and Plan *Assessment and plan (1) Bandemia: Status: Acute Category: Medical Code(s): D72.825 - Bandemia (2) UTI (urinary tract infection): Status: Acute Category: Medical Code(s): N39.0 - Urinary tract infection, site not specified (3) Fall: Status: Acute Qualifiers: Encounter type: initial encounter Qualified Code(s): W19.XXXA - Unspecified fall, initial encounter Category: Medical Code(s): W19.XXXA - Unspecified fall, initial encounter (4) Debility: Status: Acute Category: Medical Code(s): R53.81 - Other malaise (5) Abrasion of hip: Status: Acute Category: Medical Code(s): S70.219A - Abrasion, unspecified hip, initial encounter (6) Weakness: Status: Acute Category: Medical Code(s): R53.1 - Weakness (7) Hearing deficit: Status: Acute Category: Medical Code(s): H91.90 - Unspecified heari
--- NOTE | 2023-03-13 09:11 | SW/DCPLANNER ---
Addendum entered by Martha Michelle 03/13/23 11:17: Carina ochoa/ Jessica [facility] stated that services will begin tomorrow 03/14 for this patient. Original Note: I attempted to contact this patient regardin home health services. Patient did not answer but his next of kin (Shawanda) was able to discuss home health services. Shawanda stated that patient is agreeable to home health and would prefer to use [facility]. Patient information/order has been faxed and I will follow up don/ Jessica once reviewed. Patient discharged home over the weekend.
--- NOTE | 2023-03-13 13:21 | CARE MANAGER ---
Called and spoke with patient regarding recent discharge. Patient stated that he is doing ok and that he has started new medication. He was not aware that he needed to call and schedule appt with Dr. Terry for 03/20, but stated that he will call them. No concerns voiced at time of call.
--- NOTE | 2023-03-15 16:35 | EXP.DC.SUM ---
General Admission date:: 03/10/23 Discharge date: 03/12/23 HPI HPI HPI: Medical Decision Narrative: This 77year old male presented to the emergency department after fall a few days ago. He complains of right hip pain, low back pain. On ER evaluation: patient is hemodynamically stable, afebrile, GCS 15, resting comfortably. Physical exam notable for full range of motion passively in the lower extremities but minor pain in the right hip with range of motion. No deformity. Neurovascularly intact. Tenderness of the lumbar spine without other spinal tenderness, no deformity, no step-off, no focal neurologic deficits. No findings of trauma to the head. There was concern for urinary tract infection. Imaging included x-rays of the pelvis, hip, right femur, CT imaging of the head and lumbar spine. Patient received IV fluids for treatment. CBC revealed leukocytosis, WBC 15.6, no anemia, CMP showed new kidney changes including BUN 37, creatinine 1.3 AST newly elevated at 188. The UA showed 3-5 WBCs, 4+ bacteria, positive nitrates. Radiologic studies demonstrate no fracture or dislocation in the pelvis, right hip, or right femur. The patient has marked hearing deficit and therefor obtaining a history proves difficult. I last saw this patient in the office of A in September of 2020. He takes no medications. Hospital Course Hospital Course Hospital Course: PT assessment and case management assessment were both ordered and he was started on antibiotics for UTI. His white blood cell count improved. His B12 was low and an injection of B12 was ordered. The patient was stable to be discharged home on 03/12/2023 with home health. He was started on B12 2000 mcg daily and his case was discussed with his family. They were told that he was a fall risk and that he would need hearing aids. He will follow-up in the office of [facility]. His urine culture is still pending. Exam Data for Last 24 hours Vital signs and Labs for Last 24 Hours: Temp Pulse Resp BP Pulse Ox O2 Del Method 97.6 F 95 H 16 144/71 H 97 Room Air 03/12/23 08:00 03/12/23 08:00 03/12/23 08:00 03/12/23 08:00 03/12/23 08:00 03/12/23 12:52 Microbiology Reports for the Last 24 Hours: Microbiology 03/10/23 13:45 Urine,Clean Catch Urine Culture - Preliminary Narrative: Constitutional Constitutional: no acute distress and thin *Routine HEENT Exam Head: Present normocephalic and atraumatic Eye: Present EOMI and PERRL ENT: Present mucous membranes moist and TM's clear bilaterally *Routine Neck Exam Neck: Present supple; Absent JVD Routine Chest/Breast/Axilla Exam Chest wall: Absent tenderness *Routine Respiratory Exam Respiratory: Absent respiratory distress *Routine Cardiovascular Exam Cardiovascular: Present RRR and S4 *Routine Abdominal Exam Abdominal: Present soft and normoactive bowel sounds; Absent tenderness, distended, rebound, guarding, firm, obese, organomegaly or mass *Routine Rectal Exam Rectal:: deferred *Routine Genitalia Exam Genitalia:: deferred *Routine Extremities Exam Extremities: Present normal capillary refill; Absent cyanosis, edema or tenderness Comments: 8cm abrasion of the right hip Routine Back/Spine/Pelvis Exam Back/Spine: Present kyphosis; Absent CVA tenderness or pain with flexion Pelvis: Absent buttock ecchymosis (right abrasion) *Routine Skin Exam Skin: Present lesions (right hip abrasion) *Routine Neurological Exam Neurological: Present alert, oriented X3, moving all extremities and normal speech; Absent sensory deficit, motor deficit, hearing grossly intact or facial asymmetry Routine Psychiatric Exam Psychiatric: Present unable to assess (seems intact. Hearing deficit complicates assessment) Results Data Completed and Pending Labs on day of discharge: Preliminary micro results at discharge 03/10/23 13:45 Urine Culture - Preliminary Urine,Clean Catch DS: Diagnosis Discharge Diagnosis (1) Ban
== END 2023-03-12 14:09 | disposition home health service (06) ==
LOC: ER 15:13 → 2ND 15:25
PROVIDERS: Admitting Provider Family Medicine; Emergency Provider Emergency Medicine; PCP Family Medicine; Visit Provider Family Medicine
DX: W19.XXXA Unspecified fall, initial encounter (principal); R53.81 Other malaise; N17.9 Acute kidney failure, unspecified; R53.1 Weakness; S70.219A Abrasion, unspecified hip, initial encounter; H91.90 Unspecified hearing loss, unspecified ear; E86.0 Dehydration; D72.825 Bandemia; N39.0 Urinary tract infection, site not specified; F17.210 Nicotine dependence, cigarettes, uncomplicated; R29.6 Repeated falls
CPT/HCPCS: 36415; 70450; 72131; 73502; 73552; 80053; 81001; 82607; 84443; 85007; 85025; 87086; 97116; 97161; 99285; G0378; J0131; J0696